=== PATIENT | female | born 1985 | race Caucasian/White ===

== ENCOUNTER → 2017-05-22 | Outpatient (CLI) | payer OTHER ==
[~2017-05-22] MED LIST: ACYC200 PO; ACYC400 PO; ALBU2.5V5 INH; ALBU90OI6 INH; ATEN25; BENZ100A PO; CLAR500CR PO; DULERA 200 MCG/13 GM INH; FLONASE ALLERG9.9 ML; FLUC200 PO; GUAI600T33 PO; HYDACE5 PO; LEVFLO500 PO; MULVITMINE PO; NYSTRITC TOP; ONDA4ODT PO; PRED20 PO; PROCODE120 PO; PSEU120ER PO; RANI150 PO; ROXICODONE5 MG PO; STOOL SOFTNER PO
[2017-05-26 11:12] LABS: HPV Genotype 16 Not Detected (NOTDET); HPV Genotype 18 Not Detected (NOTDET)
[2017-06-02 11:15] LABS: HPV High Risk Other Not Detected (NOTDET)
== END ==
LOC: LAB 16:14
PROVIDERS: Nurse Practitioner Family
DX: Z12.4 Encounter for screening for malignant neoplasm of cervix (principal)
CPT/HCPCS: 87624; G0145

== ENCOUNTER → 2017-09-17 | Outpatient (CLI) | payer OTHER ==
[~2017-09-17] MED LIST changes: -ALBU2.5V5 INH; -DULERA 200 MCG/13 GM INH; -ROXICODONE5 MG PO; +Ventolin/Prove6.7 GM
== END ==
LOC: LAB 16:21 → LAB SHORT 16:21
DX: R05 Cough (principal)
CPT/HCPCS: 87070; 87205

== ENCOUNTER 2017-09-22 17:32 | Inpatient (IN) | payer OTHER ==
[~2017-09-22] VITALS: Ht 160 cm; Wt 99.0 kg
[~2017-09-22 17:32] MED LIST changes: -ACYC400 PO; -ALBU90OI6 INH; -BENZ100A PO; -CLAR500CR PO; -FLONASE ALLERG9.9 ML; -FLUC200 PO; -GUAI600T33 PO; -NYSTRITC TOP; -ONDA4ODT PO; -PRED20 PO; -Ventolin/Prove6.7 GM
[2017-09-22] MEDS ORDERED: ALBU2.5V5 INH (18:12)
[2017-09-22] MEDS ORDERED: FLUC200 PO (18:13)
[2017-09-22] MEDS ORDERED: CLAR500CR PO (18:13)
[2017-09-22] MEDS ORDERED: ALBU90OI6 INH (18:13)
[2017-09-22] MEDS ORDERED: ONDA4ODT PO (18:13)
[2017-09-22] MEDS ORDERED: GUAI600T33 PO (18:13)
[2017-09-22] MEDS ORDERED: PRED20 PO (18:14)
[2017-09-22 19:13] LABS: Alanine Aminotransfer (ALT/SGP 173 U/L (12-78); Albumin, Blood 3.9 g/dL (3.4-5.0); Albumin/Globulin Ratio 0.9 (0.8-1.8); Alk Phos 120 U/L (50-136); Anion Gap 10 mmol/L (6-16); Aspartate Aminotrans (AST/SGOT 86 U/L (12-37); Bilirubin, Total 0.7 mg/dL (0.1-1.0); Blood Urea Nitrogen 10 mg/dL (8-24); Bun/Creatinine Ratio 13.4 (12.0-20.0); CO2, Blood 23 mmol/L (21-32); Calcium, Blood 9.6 mg/dL (8.5-10.1); Chloride, Blood 107 mmol/L (98-108); Creatinine, Blood 0.75 mg/dL (0.40-1.00); Globulin, Blood 4.5 g/dL (2.2-4.0); Glomerular Filtration Rate >60 (60-); Glucose, Blood 127 mg/dL (70-99); Potassium, Blood 3.9 mmol/L (3.5-5.5); Sodium, Blood 140 mmol/L (136-145); Total Protein, Blood 8.4 g/dL (6.4-8.2); Troponin I <0.015 ng/mL (0.000-0.040)
[2017-09-22 19:29] LABS: BASOPHILS ABSOLUTE AUTO 0.01 K/mm3 (0.00-0.23); BASOPHILS PERCENT AUTO 0 % (0-2); EOSINOPHILS PERCENT AUTO 0 % (0-6); Hematocrit 44.3 % (33.0-51.0); Hemoglobin 14.7 g/dL (11.5-16.0); IMMATURE GRAN PERCENT AUTO 1 % (0-1); LYMPHOCYTES ABSOLUTE AUTO 1.26 K/mm3 (0.84-5.20); LYMPHOCYTES PERCENT AUTO 8 % (21-46); MONOCYTES PERCENT AUTO 1 % (4-13); Mean Corpuscular HGB 27.6 pg (26.0-34.0); Mean Corpuscular HGB Conc 33.2 g/dL (31.5-36.5); Mean Corpuscular Volume 83 fL (80-100); Mean Platelet Volume 10.4 fL (9.1-12.4); NEUTROPHILS ABSOLUTE AUTO 14.97 K/mm3 (1.96-9.15); NEUTROPHILS PERCENT AUTO 90 % (41-73); Platelet Count 324 K/mm3 (150-400); RDW Coefficient Variation 14.4 % (11.7-14.2); RDW Standard Deviation 41.1 fL (35.1-46.3); Red Blood Cell Count 5.33 M/mm3 (3.80-5.20); White Blood Cell Count 16.64 K/mm3 (4.00-11.30)
[2017-09-22] MEDS ORDERED: RANI150 PO (22:18)
[2017-09-22] MEDS ORDERED: FLONASE ALLERG9.9 ML ×2 (22:18→22:19)
[2017-09-22 22:27] LABS: PCO2 Arterial 21.4 mmHg (35-45); PO2 Arterial 41.3 mmHg (80-100); pH Blood Arterial 7.54 (7.35-7.45)
[2017-09-22 22:46] LABS: Influenza A Negative (NEGATIVE); Influenza B Negative (NEGATIVE)
[2017-09-23] MEDS ORDERED: BENZ100A PO (00:44)
[2017-09-23] MEDS ORDERED: ACYC400 PO (00:47)
[2017-09-23] MEDS ORDERED: NYSTRITC TOP (00:48)
[2017-09-23 04:12] LABS: Hematocrit 35.7 % (33.0-51.0); Hemoglobin 11.8 g/dL (11.5-16.0); Mean Corpuscular HGB 27.7 pg (26.0-34.0); Mean Corpuscular HGB Conc 33.1 g/dL (31.5-36.5); Mean Corpuscular Volume 84 fL (80-100); Mean Platelet Volume 10.2 fL (9.1-12.4); Platelet Count 241 K/mm3 (150-400); RDW Coefficient Variation 14.4 % (11.7-14.2); RDW Standard Deviation 41.2 fL (35.1-46.3); Red Blood Cell Count 4.26 M/mm3 (3.80-5.20); White Blood Cell Count 12.03 K/mm3 (4.00-11.30)
[2017-09-23 04:44] LABS: Alanine Aminotransfer (ALT/SGP 120 U/L (12-78); Albumin, Blood 3.1 g/dL (3.4-5.0); Albumin/Globulin Ratio 0.9 (0.8-1.8); Alk Phos 83 U/L (50-136); Anion Gap 9 mmol/L (6-16); Aspartate Aminotrans (AST/SGOT 43 U/L (12-37); Bilirubin, Total 0.7 mg/dL (0.1-1.0); Blood Urea Nitrogen 9 mg/dL (8-24); Bun/Creatinine Ratio 12.1 (12.0-20.0); CO2, Blood 20 mmol/L (21-32); Calcium, Blood 7.6 mg/dL (8.5-10.1); Chloride, Blood 113 mmol/L (98-108); Creatinine, Blood 0.75 mg/dL (0.40-1.00); Globulin, Blood 3.5 g/dL (2.2-4.0); Glomerular Filtration Rate >60 (60-); Glucose, Blood 154 mg/dL (70-99); Potassium, Blood 3.8 mmol/L (3.5-5.5); Sodium, Blood 142 mmol/L (136-145); Total Protein, Blood 6.6 g/dL (6.4-8.2)
[2017-09-23 04:47] LABS: PCO2 Arterial 30.9 mmHg (35-45); PO2 Arterial 86.8 mmHg (80-100); pH Blood Arterial 7.44 (7.35-7.45)
[2017-09-23 15:40] LABS: Vancomycin, Trough 12.2 ug/mL (5.0-10.0)
[2017-09-23 16:07] LABS: Adenovirus Not Detected (NOT DETECT); Bordetella pertussis Not Detected (NOT DETECT); Chlamydophila pneumoniae Not Detected (NOT DETECT); Coronavirus 229E Not Detected (NOT DETECT); Coronavirus HKU1 Not Detected (NOT DETECT); Coronavirus NL63 Not Detected (NOT DETECT); Coronavirus OC43 Not Detected (NOT DETECT); Human Metapneumovirus Not Detected (NOT DETECT); Human Rhinovirus/Enterovirus Not Detected (NOT DETECT); Influenza A/2009-H1 Not Detected (NOT DETECT); Influenza A/H1 Not Detected (NOT DETECT); Influenza A/H3 Not Detected (NOT DETECT); Influenza B Not Detected (NOT DETECT); Mycoplasma pneumoniae Not Detected (NOT DETECT); Parainfluenza Virus 1 Not Detected (NOT DETECT); Parainfluenza Virus 2 Not Detected (NOT DETECT); Parainfluenza Virus 3 Not Detected (NOT DETECT); Parainfluenza Virus 4 Not Detected (NOT DETECT); Respiratory Syncytial Virus Not Detected (NOT DETECT)
[2017-09-23 17:28] LABS: Influenza A Not Detected (NOT DETECT)
[2017-09-24 04:03] LABS: BASOPHILS ABSOLUTE AUTO 0.01 K/mm3 (0.00-0.23); BASOPHILS PERCENT AUTO 0 % (0-2); EOSINOPHILS PERCENT AUTO 0 % (0-6); Hematocrit 35.5 % (33.0-51.0); Hemoglobin 11.6 g/dL (11.5-16.0); IMMATURE GRAN ABSOLUTE AUTO 0.09 K/mm3 (0.00-0.10); IMMATURE GRAN PERCENT AUTO 1 % (0-1); LYMPHOCYTES ABSOLUTE AUTO 0.71 K/mm3 (0.84-5.20); LYMPHOCYTES PERCENT AUTO 6 % (21-46); MONOCYTES ABSOLUTE AUTO 0.27 K/mm3 (0.16-1.47); MONOCYTES PERCENT AUTO 2 % (4-13); Mean Corpuscular HGB 28.9 pg (26.0-34.0); Mean Corpuscular HGB Conc 32.7 g/dL (31.5-36.5); Mean Platelet Volume 10.4 fL (9.1-12.4); NEUTROPHILS ABSOLUTE AUTO 10.65 K/mm3 (1.96-9.15); NEUTROPHILS PERCENT AUTO 91 % (41-73); Platelet Count 197 K/mm3 (150-400); RDW Coefficient Variation 14.6 % (11.7-14.2); Red Blood Cell Count 4.02 M/mm3 (3.80-5.20); White Blood Cell Count 11.73 K/mm3 (4.00-11.30)
[2017-09-24 04:04] LABS: Mean Corpuscular Volume 88 fL (80-100)
[2017-09-24 04:20] LABS: Alanine Aminotransfer (ALT/SGP 121 U/L (12-78); Albumin, Blood 2.9 g/dL (3.4-5.0); Albumin/Globulin Ratio 0.8 (0.8-1.8); Alk Phos 75 U/L (50-136); Anion Gap 6 mmol/L (6-16); Aspartate Aminotrans (AST/SGOT 44 U/L (12-37); Bilirubin, Total 0.5 mg/dL (0.1-1.0); Blood Urea Nitrogen 9 mg/dL (8-24); Bun/Creatinine Ratio 15.3 (12.0-20.0); CO2, Blood 23 mmol/L (21-32); Chloride, Blood 112 mmol/L (98-108); Creatinine, Blood 0.59 mg/dL (0.40-1.00); Globulin, Blood 3.5 g/dL (2.2-4.0); Glomerular Filtration Rate >60 (60-); Glucose, Blood 137 mg/dL (70-99); Potassium, Blood 4.3 mmol/L (3.5-5.5); Sodium, Blood 141 mmol/L (136-145); Total Protein, Blood 6.4 g/dL (6.4-8.2)
[2017-09-24 05:30] LABS: PCO2 Arterial 34.1 mmHg (35-45); PO2 Arterial 78.2 mmHg (80-100); pH Blood Arterial 7.45 (7.35-7.45)
[2017-09-25 07:15] LABS: BASOPHILS ABSOLUTE AUTO 0.01 K/mm3 (0.00-0.23); BASOPHILS PERCENT AUTO 0 % (0-2); EOSINOPHILS PERCENT AUTO 0 % (0-6); Hematocrit 37.1 % (33.0-51.0); IMMATURE GRAN ABSOLUTE AUTO 0.12 K/mm3 (0.00-0.10); IMMATURE GRAN PERCENT AUTO 1 % (0-1); LYMPHOCYTES ABSOLUTE AUTO 0.48 K/mm3 (0.84-5.20); LYMPHOCYTES PERCENT AUTO 4 % (21-46); MONOCYTES ABSOLUTE AUTO 0.26 K/mm3 (0.16-1.47); MONOCYTES PERCENT AUTO 2 % (4-13); Mean Corpuscular HGB 28.1 pg (26.0-34.0); Mean Corpuscular HGB Conc 32.3 g/dL (31.5-36.5); Mean Corpuscular Volume 87 fL (80-100); Mean Platelet Volume 10.4 fL (9.1-12.4); NEUTROPHILS PERCENT AUTO 92 % (41-73); Platelet Count 191 K/mm3 (150-400); RDW Coefficient Variation 14.8 % (11.7-14.2); Red Blood Cell Count 4.27 M/mm3 (3.80-5.20); White Blood Cell Count 10.97 K/mm3 (4.00-11.30)
[2017-09-25 07:31] LABS: Vancomycin, Trough 14.5 ug/mL (5.0-10.0)
[2017-09-25 07:32] LABS: Albumin, Blood 2.9 g/dL (3.4-5.0); Anion Gap 5 mmol/L (6-16); Blood Urea Nitrogen 16 mg/dL (8-24); CO2, Blood 26 mmol/L (21-32); Chloride, Blood 110 mmol/L (98-108); Creatinine, Blood 0.59 mg/dL (0.40-1.00); Glomerular Filtration Rate >60 (60-); Glucose, Blood 147 mg/dL (70-99); Phosphorus, Blood 2.7 mg/dL (2.5-4.9); Potassium, Blood 4.4 mmol/L (3.5-5.5); Sodium, Blood 141 mmol/L (136-145)
[2017-09-27 04:00] LABS: BASOPHILS PERCENT AUTO 0 % (0-2); EOSINOPHILS PERCENT AUTO 0 % (0-6); Hematocrit 36.8 % (33.0-51.0); Hemoglobin 11.9 g/dL (11.5-16.0); IMMATURE GRAN ABSOLUTE AUTO 0.06 K/mm3 (0.00-0.10); IMMATURE GRAN PERCENT AUTO 1 % (0-1); LYMPHOCYTES PERCENT AUTO 4 % (21-46); MONOCYTES ABSOLUTE AUTO 0.26 K/mm3 (0.16-1.47); MONOCYTES PERCENT AUTO 3 % (4-13); Mean Corpuscular HGB 27.7 pg (26.0-34.0); Mean Corpuscular HGB Conc 32.3 g/dL (31.5-36.5); Mean Corpuscular Volume 86 fL (80-100); Mean Platelet Volume 10.8 fL (9.1-12.4); NEUTROPHILS ABSOLUTE AUTO 7.05 K/mm3 (1.96-9.15); NEUTROPHILS PERCENT AUTO 92 % (41-73); Platelet Count 166 K/mm3 (150-400); RDW Coefficient Variation 14.7 % (11.7-14.2); RDW Standard Deviation 44.4 fL (35.1-46.3); White Blood Cell Count 7.67 K/mm3 (4.00-11.30)
[2017-09-27 04:15] LABS: Albumin, Blood 2.6 g/dL (3.4-5.0); Anion Gap 6 mmol/L (6-16); Blood Urea Nitrogen 20 mg/dL (8-24); Bun/Creatinine Ratio 33.5 (12.0-20.0); CO2, Blood 26 mmol/L (21-32); Calcium, Blood 7.8 mg/dL (8.5-10.1); Chloride, Blood 110 mmol/L (98-108); Glomerular Filtration Rate >60 (60-); Glucose, Blood 160 mg/dL (70-99); Phosphorus, Blood 3.1 mg/dL (2.5-4.9); Potassium, Blood 4.4 mmol/L (3.5-5.5); Sodium, Blood 142 mmol/L (136-145)
[2017-09-28 08:12] LABS: Vancomycin, Trough 13.5 ug/mL (5.0-10.0)
[2017-10-01] MEDS ORDERED: ROXICODONE5 MG PO (17:44)
[2017-10-01] MEDS ORDERED: DULERA 200 MCG/13 GM INH (17:45)
== END 2017-10-01 19:50 | disposition home or self-care (01) | DRG 871 ==
LOC: ER 17:32 → PCU 20:13 → ICUE 20:13 → PCU 09-24 17:40 → MEDS 09-30 22:30
PROVIDERS: Emergency Medicine; Family Medicine; Internal Medicine; Internal Medicine Critical Care Medicine
PROC: 5A09357 Assistance with Respiratory Ventilation, Less than 24 Consecutive Hours, Continuous Positive Airway Pressure (ICD-10-PCS; principal; 2017-09-22)
DX: A41.9 Sepsis, unspecified organism (principal); J18.0 Bronchopneumonia, unspecified organism; J96.01 Acute respiratory failure with hypoxia; J45.901 Unspecified asthma with (acute) exacerbation; R65.20 Severe sepsis without septic shock; M32.9 Systemic lupus erythematosus, unspecified; K21.9 Gastro-esophageal reflux disease without esophagitis; K59.00 Constipation, unspecified; E66.9 Obesity, unspecified; Z68.34 Body mass index [BMI] 34.0-34.9, adult
CPT/HCPCS: 36415; 36600; 71045; 71046; 71260; 80053; 80069; 80202; 82803; 83605; 84145; 84484; 85025; 85027; 85379; 87040; 87070; 87205; 87486; 87581; 87633; 87798; 87804; 93005; 93010; 94640; 94660; 94667; 94668; 94760; 94761; 94762; 96365; 96366; 96375; 99285; C1751; J1650; J1885; J1956; J2543; J2930; J3010; J3370; J3475; J7030; J7050; J7120; Q9967

== ENCOUNTER → 2018-06-11 | Outpatient (CLI) | payer OTHER ==
[~2018-06-11] MED LIST changes: +ACYC400 PO; +ALBU2.5V5 INH; +ALBU90OI6 INH; +BENZ100A PO; +CLAR500CR PO; +DULERA 200 MCG/13 GM INH; +FLONASE ALLERG9.9 ML; +FLUC200 PO; +GUAI600T33 PO; +NYSTRITC TOP; +ONDA4ODT PO; +PRED20 PO; +ROXICODONE5 MG PO
== END | disposition home or self-care (01) ==
LOC: LAB SHORT 10:03 → LAB 10:03
DX: R05 Cough (principal)
CPT/HCPCS: 87070; 87205

== ENCOUNTER 2018-12-28 22:06 | Emergency (ER) | payer OTHER, SELFPAY ==
[~2018-12-28] VITALS: Ht 160 cm; Wt 95.2 kg
[2018-12-29 00:03] LABS: Source, Urine Clean Catch
[2018-12-29 00:13] LABS: Blood, Urine 5+ (Neg); Glucose Qualitative, Urine Neg (Neg); Ketones, Urine Neg (Neg); Leukocyte Esterase, Urine 3+ (Neg); Nitrite, Urine Pos (Neg); Protein, Urine 3+ (Neg); Specific Gravity, Urine 1.025 (1.003-1.022); Urobilinogen, Urine 4+ (Normal)
[2018-12-29 00:23] LABS: Appearance, Urine Cloudy (Clear); Bilirubin, Urine 3+ (Neg); Color, Urine Orange (P-Yellow)
[2018-12-29 00:24] LABS: Bacteria Mod /hpf; Red Blood Cells, Urine TNTC /hpf (0-2); Squamous Epithelial Cells Rare /hpf (Few); White Blood Cells, Urine TNTC /hpf (0-5)
[2018-12-29] MEDS ORDERED: Bactrim Ds Tab1 EACH PO (00:48)
[2018-12-29] MEDS ORDERED: Pyridium100 MG PO (00:48)
== END 2018-12-29 00:59 | disposition home or self-care (01) ==
LOC: ER 22:06
PROVIDERS: Emergency Medicine
DX: N30.91 Cystitis, unspecified with hematuria (principal); Z88.8 Allergy status to other drugs, medicaments and biological substances; Z88.1 Allergy status to other antibiotic agents; Z79.899 Other long term (current) drug therapy; Z79.52 Long term (current) use of systemic steroids; Z87.891 Personal history of nicotine dependence
CPT/HCPCS: 81001; 87086; 96372; 99283; J1885

== ENCOUNTER 2020-02-01 11:10 | Emergency (ER) | payer OTHER ==
[~2020-02-01] VITALS: Ht 157.5 cm; Wt 92.5 kg
[~2020-02-01 11:10] MED LIST changes: +Bactrim Ds Tab1 EACH PO; +Pyridium100 MG PO
[2020-02-01 13:12] LABS: BASOPHILS ABSOLUTE AUTO 0.02 K/mm3 (0.00-0.23); BASOPHILS PERCENT AUTO 0 % (0-2); EOSINOPHILS PERCENT AUTO 0 % (0-6); Hematocrit 42.8 % (33.0-51.0); Hemoglobin 13.8 g/dL (11.5-16.0); IMMATURE GRAN ABSOLUTE AUTO 0.17 K/mm3 (0.00-0.10); IMMATURE GRAN PERCENT AUTO 1 % (0-1); LYMPHOCYTES PERCENT AUTO 8 % (21-46); MONOCYTES ABSOLUTE AUTO 0.86 K/mm3 (0.16-1.47); MONOCYTES PERCENT AUTO 5 % (4-13); Mean Corpuscular HGB 27.9 pg (26.0-34.0); Mean Corpuscular HGB Conc 32.2 g/dL (31.5-36.5); Mean Corpuscular Volume 87 fL (80-100); Mean Platelet Volume 10.1 fL (9.1-12.4); NEUTROPHILS ABSOLUTE AUTO 16.62 K/mm3 (1.96-9.15); NEUTROPHILS PERCENT AUTO 87 % (41-73); Platelet Count 232 K/mm3 (150-400); RDW Standard Deviation 44.2 fL (35.1-46.3); Red Blood Cell Count 4.95 M/mm3 (3.80-5.20); White Blood Cell Count 19.17 K/mm3 (4.00-11.30)
[2020-02-01 13:14] LABS: Alanine Aminotransfer (ALT/SGP 18 U/L (12-78); Albumin, Blood 3.8 g/dL (3.4-5.0); Alk Phos 79 U/L (50-136); Anion Gap 9 mmol/L (6-16); Aspartate Aminotrans (AST/SGOT 13 U/L (12-37); Bilirubin, Total 0.4 mg/dL (0.1-1.0); Blood Urea Nitrogen 14 mg/dL (8-24); Bun/Creatinine Ratio 20.3 (12.0-20.0); CO2, Blood 22 mmol/L (21-32); Chloride, Blood 111 mmol/L (98-108); Creatinine, Blood 0.69 mg/dL (0.40-1.00); Globulin, Blood 3.7 g/dL (2.2-4.0); Glomerular Filtration Rate >60 (60-); Glucose, Blood 101 mg/dL (70-99); Potassium, Blood 3.6 mmol/L (3.5-5.5); Sodium, Blood 142 mmol/L (136-145); Total Protein, Blood 7.5 g/dL (6.4-8.2); Troponin I <0.015 ng/mL (0.000-0.040)
[2020-02-01] MEDS ORDERED: Levaquin750 MG PO (15:52)
== END 2020-02-01 16:10 | disposition home or self-care (01) ==
LOC: ER 11:10
PROVIDERS: Emergency Medicine
DX: J18.9 Pneumonia, unspecified organism (principal); J45.909 Unspecified asthma, uncomplicated; K21.9 Gastro-esophageal reflux disease without esophagitis; Z88.8 Allergy status to other drugs, medicaments and biological substances; Z88.1 Allergy status to other antibiotic agents; Z79.899 Other long term (current) drug therapy; Z79.02 Long term (current) use of antithrombotics/antiplatelets; Z87.891 Personal history of nicotine dependence; Z79.52 Long term (current) use of systemic steroids; Z20.828 Contact with and (suspected) exposure to other viral communicable diseases
CPT/HCPCS: 71045; 80053; 84484; 85025; 85379; 93005; 93010; 99285-25; U0002; U0003

== ENCOUNTER → 2020-08-16 | Outpatient (CLI) | payer OTHER ==
[~2020-08-16] MED LIST changes: +Levaquin750 MG PO
[2020-08-17 09:30] LABS: Candida species (DNA Probe) Negative (NEGATIVE); G. vaginalis (DNA Probe) Negative (NEGATIVE); T. vaginalis (DNA Probe) Negative (NEGATIVE)
== END | disposition home or self-care (01) ==
LOC: LAB SHORT 12:15 → LAB 12:15
PROVIDERS: Nurse Practitioner Family
DX: N89.8 Other specified noninflammatory disorders of vagina (principal); R10.30 Lower abdominal pain, unspecified
CPT/HCPCS: 87480; 87510; 87660

== ENCOUNTER → 2020-11-19 | Outpatient (CLI) | payer OTHER | LOC: LAB SHORT 19:57 → LAB 19:57 | DX: R31.9 Hematuria, unspecified (principal) | CPT/HCPCS: 87077; 87086; 87186 ==

== ENCOUNTER → 2020-12-16 | Outpatient (CLI) | payer OTHER | END | disposition home or self-care (01) | LOC: LAB 17:00 → LAB SHORT 17:00 | DX: N30.01 Acute cystitis with hematuria (principal) | CPT/HCPCS: 87086 ==

== ENCOUNTER → 2021-04-15 | Outpatient (CLI) | payer OTHER | LOC: LAB 17:24 → LAB SHORT 17:24 | DX: R31.9 Hematuria, unspecified (principal); N30.01 Acute cystitis with hematuria | CPT/HCPCS: 87077; 87086; 87186 ==

== ENCOUNTER 2021-05-20 11:22 | Emergency (ER) | payer OTHER ==
[~2021-05-20] VITALS: Ht 157.5 cm; Wt 87.1 kg
[2021-05-20 11:36] LABS: Source, Urine Clean Catch
[2021-05-20 11:42] LABS: Appearance, Urine Hazy (Clear); Bilirubin, Urine Neg (Neg); Blood, Urine 5+ (Neg); Color, Urine Yellow (P-Yellow); Glucose Qualitative, Urine Neg (Neg); Ketones, Urine 2+ (Neg); Leukocyte Esterase, Urine 2+ (Neg); Nitrite, Urine Pos (Neg); Protein, Urine 2+ (Neg); Urobilinogen, Urine NORM (Normal)
[2021-05-20 11:54] LABS: Amorphous Light (0-Heavy); Bacteria Many /hpf; Mucus Heavy (0-Heavy); Red Blood Cells, Urine 50-100 /hpf (0-2); Squamous Epithelial Cells Few /hpf (Few)
[2021-05-20 11:55] LABS: Amorphous Casts 0-2 /lpf (0)
[2021-05-20 12:06] LABS: BASOPHILS ABSOLUTE AUTO 0.03 K/mm3 (0.00-0.23); BASOPHILS PERCENT AUTO 0 % (0-2); EOSINOPHILS PERCENT AUTO 0 % (0-6); Hematocrit 41.7 % (33.0-51.0); Hemoglobin 14.1 g/dL (11.5-16.0); IMMATURE GRAN ABSOLUTE AUTO 0.05 K/mm3 (0.00-0.10); IMMATURE GRAN PERCENT AUTO 0 % (0-1); LYMPHOCYTES ABSOLUTE AUTO 1.37 K/mm3 (0.84-5.20); LYMPHOCYTES PERCENT AUTO 9 % (21-46); MONOCYTES ABSOLUTE AUTO 0.68 K/mm3 (0.16-1.47); MONOCYTES PERCENT AUTO 5 % (4-13); Mean Corpuscular HGB Conc 33.8 g/dL (31.5-36.5); Mean Corpuscular Volume 83 fL (80-100); Mean Platelet Volume 10.3 fL (9.1-12.4); NEUTROPHILS PERCENT AUTO 86 % (41-73); Platelet Count 183 K/mm3 (150-400); RDW Coefficient Variation 14.2 % (11.7-14.2); RDW Standard Deviation 42.5 fL (35.1-46.3); Red Blood Cell Count 5.04 M/mm3 (3.80-5.20); White Blood Cell Count 14.73 K/mm3 (4.00-11.30)
[2021-05-20 12:15] LABS: Alanine Aminotransfer (ALT/SGP 20 U/L (12-78); Albumin, Blood 3.9 g/dL (3.4-5.0); Alk Phos 71 U/L (50-136); Anion Gap 7 mmol/L (6-16); Aspartate Aminotrans (AST/SGOT 12 U/L (12-37); Bilirubin, Total 1.1 mg/dL (0.1-1.0); Blood Urea Nitrogen 9 mg/dL (8-24); Bun/Creatinine Ratio 12.4 (12.0-20.0); CO2, Blood 25 mmol/L (21-32); Chloride, Blood 106 mmol/L (98-108); Creatinine, Blood 0.73 mg/dL (0.40-1.00); Globulin, Blood 3.8 g/dL (2.2-4.0); Glomerular Filtration Rate >60 (60-); Glucose, Blood 106 mg/dL (70-99); Potassium, Blood 3.7 mmol/L (3.5-5.5); Sodium, Blood 138 mmol/L (136-145); Total Protein, Blood 7.7 g/dL (6.4-8.2)
[2021-05-20] MEDS ORDERED: Pyridium200 MG PO (13:08)
[2021-05-20] MEDS ORDERED: Naprosyn500 MG PO (13:08)
[2021-05-20] MEDS ORDERED: LEVO750 PO (13:08)
== END 2021-05-20 13:34 | disposition home or self-care (01) ==
LOC: ER 11:22
PROVIDERS: Physician Assistant
DX: N12 Tubulo-interstitial nephritis, not specified as acute or chronic (principal); N83.209 Unspecified ovarian cyst, unspecified side; Z88.8 Allergy status to other drugs, medicaments and biological substances; Z88.1 Allergy status to other antibiotic agents; Z79.899 Other long term (current) drug therapy; Z87.440 Personal history of urinary (tract) infections; Z87.891 Personal history of nicotine dependence
CPT/HCPCS: 74176; 80053; 81001; 81025; 85025; 87077; 87086; 87186; 96372; 99285-25; J1885

== ENCOUNTER 2021-06-29 07:08 | Emergency (ER) | payer OTHER ==
[~2021-06-29] VITALS: Ht 157.5 cm; Wt 83.0 kg
[~2021-06-29 07:08] MED LIST changes: +LEVO750 PO; +Naprosyn500 MG PO; +Pyridium200 MG PO
[2021-06-29 08:44] LABS: Influenza A, PCR NEGATIVE (NEGATIVE); Influenza B, PCR NEGATIVE (NEGATIVE); Resp Syncytial Virus, PCR NEGATIVE (NEGATIVE); SARS-Cov-2 (COVID-19) PCR, MMC NEGATIVE (NEGATIVE)
[2021-06-29] MEDS ORDERED: Q-Tussin100 MG/5 M PO (09:51)
== END 2021-06-29 10:06 | disposition home or self-care (01) ==
LOC: ER 07:08
PROVIDERS: Student in an Organized Health Care Education/Training Program
DX: J45.909 Unspecified asthma, uncomplicated (principal); Z20.822 Contact with and (suspected) exposure to COVID-19; Z88.8 Allergy status to other drugs, medicaments and biological substances; Z88.1 Allergy status to other antibiotic agents; Z79.899 Other long term (current) drug therapy; Z87.891 Personal history of nicotine dependence
CPT/HCPCS: 0241U; 71046; 99284-25; A9270

== ENCOUNTER 2021-07-05 14:08 | Emergency (ER) | payer OTHER ==
[~2021-07-05] VITALS: Ht 157.5 cm; Wt 83.0 kg
[~2021-07-05 14:08] MED LIST changes: +Q-Tussin100 MG/5 M PO
[2021-07-05 14:59] LABS: BASOPHILS ABSOLUTE AUTO 0.01 K/mm3 (0.00-0.23); BASOPHILS PERCENT AUTO 0 % (0-2); EOSINOPHILS ABSOLUTE AUTO 0.03 K/mm3 (0.00-0.68); EOSINOPHILS PERCENT AUTO 0 % (0-6); Hematocrit 43.4 % (33.0-51.0); Hemoglobin 14.9 g/dL (11.5-16.0); IMMATURE GRAN ABSOLUTE AUTO 0.07 K/mm3 (0.00-0.10); IMMATURE GRAN PERCENT AUTO 1 % (0-1); LYMPHOCYTES ABSOLUTE AUTO 3.38 K/mm3 (0.84-5.20); LYMPHOCYTES PERCENT AUTO 33 % (21-46); MONOCYTES ABSOLUTE AUTO 0.41 K/mm3 (0.16-1.47); MONOCYTES PERCENT AUTO 4 % (4-13); Mean Corpuscular HGB 28.2 pg (26.0-34.0); Mean Corpuscular HGB Conc 34.3 g/dL (31.5-36.5); Mean Corpuscular Volume 82 fL (80-100); Mean Platelet Volume 10.4 fL (9.1-12.4); NEUTROPHILS ABSOLUTE AUTO 6.35 K/mm3 (1.96-9.15); NEUTROPHILS PERCENT AUTO 62 % (41-73); Platelet Count 168 K/mm3 (150-400); RDW Coefficient Variation 13.2 % (11.7-14.2); Red Blood Cell Count 5.29 M/mm3 (3.80-5.20); White Blood Cell Count 10.25 K/mm3 (4.00-11.30)
[2021-07-05 15:11] LABS: Alanine Aminotransfer (ALT/SGP 21 U/L (12-78); Albumin, Blood 3.8 g/dL (3.4-5.0); Albumin/Globulin Ratio 1.2 (0.8-1.8); Alk Phos 80 U/L (50-136); Anion Gap 9 mmol/L (6-16); Aspartate Aminotrans (AST/SGOT 16 U/L (12-37); Bilirubin, Total 0.9 mg/dL (0.1-1.0); Blood Urea Nitrogen 6 mg/dL (8-24); Bun/Creatinine Ratio 7.5 (12.0-20.0); CO2, Blood 24 mmol/L (21-32); Calcium, Blood 8.7 mg/dL (8.5-10.1); Chloride, Blood 106 mmol/L (98-108); Globulin, Blood 3.3 g/dL (2.2-4.0); Glomerular Filtration Rate >60 (60-); Glucose, Blood 164 mg/dL (70-99); Magnesium, Blood 1.8 mg/dL (1.6-2.4); Sodium, Blood 139 mmol/L (136-145); Total Protein, Blood 7.1 g/dL (6.4-8.2)
[2021-07-05] MEDS ORDERED: Prednisone20 MG PO (17:33)
[2021-07-05] MEDS ORDERED: Guaifenesin Wit10 ML PO (17:35)
== END 2021-07-05 17:54 | disposition home or self-care (01) ==
LOC: ER 14:08
PROVIDERS: Physician Assistant
DX: J98.01 Acute bronchospasm (principal); Z88.1 Allergy status to other antibiotic agents; Z88.8 Allergy status to other drugs, medicaments and biological substances; Z79.899 Other long term (current) drug therapy; Z87.891 Personal history of nicotine dependence
CPT/HCPCS: 36415; 71046; 80053; 83735; 85025; 96374; 96375; 99285-25; J1885; J2930

== ENCOUNTER 2021-09-19 06:11 | Inpatient (IN) | payer OTHER ==
[~2021-09-19] VITALS: Ht 157.5 cm; Wt 87.6 kg
[~2021-09-19 06:11] MED LIST changes: -ALBU2.5V5 INH; +ALBU2.5V5 NEB; +ALBU90OI INH; +AZELASTINE137 MCG/01; +Guaifenesin Wit10 ML PO; +Humibid-LA 600600 MG PO; +METHOTREXATE2.5 M1 PO; +NASACORT10.8 ML; +NITR100CA PO; +OXYB5 PO; +Prednisone20 MG PO; +Prozac40 MG PO; +SOLI5 PO
[2021-09-19] MEDS ORDERED: FLUT1DIS8 INH (06:43)
--- NOTE | 2021-09-19 08:33 | NUR ---
09/19/21 0833 Brennan Oliver HUTCHINS CATHETER PLACED PER [facility] NO ANTIBIOTICS ORDERED
--- NOTE | 2021-09-19 11:41 | NUR ---
PT ARRIVED TO UNIT FROM PACU TRANSFERRED PT FROM [facility] TO BED USING SLIDER SHEET. PT REPORTS 7/10 PAIN, PLACED KPAD TO ABD FOR COMFORT. REQUESTED FENTANYL ASSISTANT PRESS OPERATOR OFFSET FROM PHARMACY. PT DENIES N/V, SCOPALAMINE PATCH BEHIND R EAR. DENIES SOB, LCA, 02 SATS 100% ON RA. LAP INCISION w/STERI STRIP TO UMBILICUS, SLIGHT AMOUNT OOZING NOTED. TRANSVERSE DRESSING TO LOWER ABDOMEN HAS MOD AMT PINK SHADOWING NOTED.
[2021-09-19 11:59] LABS: BASOPHILS ABSOLUTE AUTO 0.02 K/mm3 (0.00-0.23); BASOPHILS PERCENT AUTO 0 % (0-2); EOSINOPHILS PERCENT AUTO 0 % (0-6); Hematocrit 36.6 % (33.0-51.0); Hemoglobin 12.7 g/dL (11.5-16.0); IMMATURE GRAN ABSOLUTE AUTO 0.05 K/mm3 (0.00-0.10); IMMATURE GRAN PERCENT AUTO 0 % (0-1); LYMPHOCYTES ABSOLUTE AUTO 1.07 K/mm3 (0.84-5.20); LYMPHOCYTES PERCENT AUTO 7 % (21-46); MONOCYTES ABSOLUTE AUTO 0.19 K/mm3 (0.16-1.47); MONOCYTES PERCENT AUTO 1 % (4-13); Mean Corpuscular HGB 28.4 pg (26.0-34.0); Mean Corpuscular HGB Conc 34.7 g/dL (31.5-36.5); Mean Corpuscular Volume 82 fL (80-100); Mean Platelet Volume 10.6 fL (9.1-12.4); NEUTROPHILS ABSOLUTE AUTO 13.45 K/mm3 (1.96-9.15); NEUTROPHILS PERCENT AUTO 91 % (41-73); Platelet Count 125 K/mm3 (150-400); RDW Coefficient Variation 12.9 % (11.7-14.2); RDW Standard Deviation 38.5 fL (35.1-46.3); Red Blood Cell Count 4.47 M/mm3 (3.80-5.20); White Blood Cell Count 14.78 K/mm3 (4.00-11.30)
--- NOTE | 2021-09-19 14:20 | NUR ---
PT HYPOTENSIVE. CALLED DR HOANG AND OBTAINED FLUID ORDERS. COMPLETED 1L BOLUS AND FLUIDS NOW RUNNING AT 200 ML/HR PER ORDERS. PT ABD SOFT BUT TENDER. KPAD IN PLACE FOR COMFORT. PT ALERT.
--- NOTE | 2021-09-19 14:42 | NUR ---
PT CONTINUES TO BE HYPOTENSIVE HR 59. DISCUSSED WITH DR HOANG. ORDERS OBTAINED FOR CBC. CONTINUE FLUIDS PER PREVIOUS ORDERS.
[2021-09-19 15:13] LABS: BASOPHILS ABSOLUTE AUTO 0.02 K/mm3 (0.00-0.23); BASOPHILS PERCENT AUTO 0 % (0-2); EOSINOPHILS PERCENT AUTO 0 % (0-6); Hematocrit 35.4 % (33.0-51.0); IMMATURE GRAN ABSOLUTE AUTO 0.05 K/mm3 (0.00-0.10); IMMATURE GRAN PERCENT AUTO 0 % (0-1); LYMPHOCYTES ABSOLUTE AUTO 0.58 K/mm3 (0.84-5.20); LYMPHOCYTES PERCENT AUTO 4 % (21-46); MONOCYTES ABSOLUTE AUTO 0.38 K/mm3 (0.16-1.47); MONOCYTES PERCENT AUTO 3 % (4-13); Mean Corpuscular HGB 28.5 pg (26.0-34.0); Mean Corpuscular HGB Conc 33.9 g/dL (31.5-36.5); Mean Corpuscular Volume 84 fL (80-100); Mean Platelet Volume 10.3 fL (9.1-12.4); NEUTROPHILS PERCENT AUTO 93 % (41-73); Platelet Count 154 K/mm3 (150-400); RDW Coefficient Variation 12.9 % (11.7-14.2); RDW Standard Deviation 39.4 fL (35.1-46.3); Red Blood Cell Count 4.21 M/mm3 (3.80-5.20); White Blood Cell Count 14.93 K/mm3 (4.00-11.30)
--- NOTE | 2021-09-19 23:14 | NUR ---
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 PT SCHEDULED TO RECEIVE MIDNOC DOSE OF TORADOL WHICH IS TO BE PTS THIRD DOSE.PT RECEIVED IV FLUID BOLUS EARLIER TODAY AND HAS BEEN RUNNING LR AT 200 ML/HR THIS ENTIRE SHIFT.DR IGNACIO ORDERED CMP IN AM,DCD TORADOL,AND DIRECTED ME TO CALL DR HOANG DIRECTLY ON CELL PHONE IN AM IF ANY FURTHER CONCERNS.
[2021-09-20 04:30] LABS: BASOPHILS ABSOLUTE AUTO 0.01 K/mm3 (0.00-0.23); BASOPHILS PERCENT AUTO 0 % (0-2); EOSINOPHILS PERCENT AUTO 0 % (0-6); Hematocrit 30.5 % (33.0-51.0); Hemoglobin 10.1 g/dL (11.5-16.0); IMMATURE GRAN ABSOLUTE AUTO 0.05 K/mm3 (0.00-0.10); IMMATURE GRAN PERCENT AUTO 0 % (0-1); LYMPHOCYTES PERCENT AUTO 9 % (21-46); MONOCYTES PERCENT AUTO 6 % (4-13); Mean Corpuscular HGB 28.4 pg (26.0-34.0); Mean Corpuscular HGB Conc 33.1 g/dL (31.5-36.5); Mean Corpuscular Volume 86 fL (80-100); Mean Platelet Volume 10.9 fL (9.1-12.4); NEUTROPHILS ABSOLUTE AUTO 10.12 K/mm3 (1.96-9.15); NEUTROPHILS PERCENT AUTO 85 % (41-73); Platelet Count 137 K/mm3 (150-400); RDW Coefficient Variation 12.8 % (11.7-14.2); RDW Standard Deviation 40.3 fL (35.1-46.3); Red Blood Cell Count 3.56 M/mm3 (3.80-5.20); White Blood Cell Count 11.98 K/mm3 (4.00-11.30)
[2021-09-20 05:05] LABS: Alanine Aminotransfer (ALT/SGP 34 U/L (12-78); Albumin, Blood 2.6 g/dL (3.4-5.0); Alk Phos 46 U/L (50-136); Anion Gap 3 mmol/L (6-16); Aspartate Aminotrans (AST/SGOT 18 U/L (12-37); Bilirubin, Total 0.6 mg/dL (0.1-1.0); Blood Urea Nitrogen 9 mg/dL (8-24); Bun/Creatinine Ratio 11.8 (12.0-20.0); CO2, Blood 29 mmol/L (21-32); Calcium, Blood 7.9 mg/dL (8.5-10.1); Chloride, Blood 108 mmol/L (98-108); Creatinine, Blood 0.77 mg/dL (0.40-1.00); Globulin, Blood 2.6 g/dL (2.2-4.0); Glomerular Filtration Rate >60 (60-); Glucose, Blood 136 mg/dL (70-99); Sodium, Blood 140 mmol/L (136-145); Total Protein, Blood 5.2 g/dL (6.4-8.2)
--- NOTE | 2021-09-20 06:38 | NUR ---
SUMMARY PHONE CALL BY DR IGNACIO FOR UPDATE.DISCUSSED STATUS,VS,LABS,NOTIFIED URINE OUTPUT IMPROVED.ADVISED PT RECENTLY TOOK PO PAIN MED.AT THIS TIME,PT NOT WANTING HUTCHINS OUT UNTIL IMPROVED PAIN CONTROL.DR IGNACIO AWARE.
--- NOTE | 2021-09-20 07:39 | NUR ---
PT REPORTING ELIZABETH PO INEFFECTIVE.PT FALLS TO SLEEP WTIH SMALL WIND ENERGY INSTALLER, BUT REPORTS WAKES PAINFUL.PER DAY SHIFT REPORT AND HER DISCUSSION WITH DR HOANG, PT NOT ABLE TO HAVE CONTINUOUS SMALL WIND ENERGY INSTALLER DUE TO HYPOTENSION.ALSO NOTING AREA OF INCREASED FIRMNESS TO UPPER MID ABDOMEN ABOVE ATTEMPTED LAP SITE. I PLACED CALL TO ANSWERING SERVICE PENDING SPEAKING WITH DR. CANNON RN AWARE AND WILL FOLLOW UP IF I AM UNABLE TO REACH DOCTOR.
--- NOTE | 2021-09-20 10:13 | NUR ---
TO BEDSIDE. EVALUATED PATIENT AND NEW ORDERS RECEIVED.
--- NOTE | 2021-09-20 16:58 | NUR ---
SHIFT SUMMARY PT POD #1 FOR BILATERAL OVARIAN CYSTECTOMY/LAPAROTOMY/LYSIS OF ADHESIONS. PT HYPOTENSIVE BUT ASYMPTOMATIC FOR THE ENTIRETY OF THE SHIFT. PT HAVING ISSUES WITH PAIN CONTROL, PAIN HAS REMAINED AT A 7/10 FOR THE MAJORITY OF THE SHIFT. HUTCHINS REMOVED AND PATIENT IS ABLE TO AMBULATE AND VOID ON HER OWN.
--- NOTE | 2021-09-21 04:32 | NUR ---
SHIFT SUMMARY NO ACUTE CHANGES OVERNIGHT. PT REPORTS THAT SHE FEELS LESS PAINFUL OVERNIGHT. PAIN LEVEL 5-6/10. PAIN MANAGED WITH PERCOCET AND IBUPROFEN. TOLERATES PO INTAKE DENIES N/V. REPORTS SOME MIGRAINE (CHRONIC). PT ALSO REPORTS SOME MILD DIZZINESS INTERMITTENTLY. BP STILL ON LOW SCALE (UNCHANGED), 90'S FOR SYSTOLIC. AMBULATES IN THE BATHROOM USING POLE, SBA FOR SAFETY. LR INFUSING OVERNIGHT. CALL LIGHT WITHIN REACH. WILL PROVIDE REPORT TO ONCOMING NURSE.
[2021-09-21] MEDS ORDERED: Percocet 5-3251 EACH PO (15:05)
[2021-09-21] MEDS ORDERED: IBU800 MG PO (15:06)
[2021-09-21] MEDS ORDERED: ONDA4ODT MM (15:06)
--- NOTE | 2021-09-21 16:05 | NUR ---
DISCHARGE SUMMARY PT'S IV DCED. PT'S PRESCRIPTIONS FAXED TO PT'S PHARMACY. PT TEACHING PROVIDED. PT ACKNOWLEDGED UNDERSTANDING OF TEACHING AND ALL DISCHARGE PAPERWORK. PT SIGNED WHERE APPROPRIATE. PT ESCORTED BY STAFF VIA WHEELCHAIR TO PERSONAL VEHICLE. PT ENTERED VEHICLE WITHOUT INCIDENT AND LEFT POV.
== END 2021-09-21 16:12 | disposition home or self-care (01) | DRG 743 ==
LOC: ORSCMMR 06:11 → ORD 07:30 → ORSCMMR 07:30 → SURS 10:40 → ORSCMMR 10:40 → SURS 11:20 → ORSCMMR 11:20 → SURS 09-21 16:12
PROVIDERS: Obstetrics & Gynecology; ADMIT Obstetrics & Gynecology
PROC: 0UB20ZZ Excision of Bilateral Ovaries, Open Approach (ICD-10-PCS; principal; 2021-09-19 07:30)
PROC: 0DNW0ZZ Release Peritoneum, Open Approach (ICD-10-PCS; 2021-09-19 07:30)
DX: N83.202 Unspecified ovarian cyst, left side (principal); N83.201 Unspecified ovarian cyst, right side; N73.6 Female pelvic peritoneal adhesions (postinfective); Z79.899 Other long term (current) drug therapy; K21.9 Gastro-esophageal reflux disease without esophagitis; J45.909 Unspecified asthma, uncomplicated; Z90.49 Acquired absence of other specified parts of digestive tract; Z90.710 Acquired absence of both cervix and uterus; Z98.890 Other specified postprocedural states; Z87.891 Personal history of nicotine dependence; G43.909 Migraine, unspecified, not intractable, without status migrainosus; M32.9 Systemic lupus erythematosus, unspecified; Z87.442 Personal history of urinary calculi
CPT/HCPCS: 36415; 80053; 85025; 87070; 87075; 87205; 88305; A9270; J1100; J1885; J2250; J2370; J2405; J2704; J3010; J7040; J7120

== ENCOUNTER → 2022-01-17 | Outpatient (CLI) | payer OTHER ==
[~2022-01-17] MED LIST changes: +FLUT1DIS8 INH; +IBU800 MG PO; +ONDA4ODT MM; +Percocet 5-3251 EACH PO
== END | disposition home or self-care (01) ==
LOC: LAB SHORT 10:48 → LAB 10:48
DX: R30.0 Dysuria (principal)
CPT/HCPCS: 87077; 87086; 87186

== ENCOUNTER → 2022-09-30 | Outpatient (CLI) | payer OTHER | END | disposition home or self-care (01) | LOC: LAB SHORT 08:09 → LAB 08:09 | DX: N39.0 Urinary tract infection, site not specified (principal) | CPT/HCPCS: 87077; 87086; 87186 ==

== ENCOUNTER 2022-12-10 06:02 | Inpatient (IN) | payer OTHER ==
[2022-12-10] VITALS (23 sets, daily range): BP systolic 85–134; BP diastolic 38–89
[~2022-12-10] VITALS: Ht 157.5 cm; Wt 94.3 kg
[2022-12-10] MEDS ORDERED: FAMO20 (06:53)
--- NOTE | 2022-12-10 07:12 | NUR ---
Ambulatory in Day Surgery History, Chart, Medications and Allergies reviewed before start of procedure.Pre-Op teaching done. Pt verbalizes understanding. Patient States Post-Procedure ride home has been arranged.
--- NOTE | 2022-12-10 12:06 | NUR ---
PT ARRIVED TO UNIT FROM PACU VERY PAINFUL, RATING PAIN 8/10 TO ABD, CRYING OUT WITH MOVEMENT. INSTRUCTED PT ON RELAXATION BREATHING. STARTED SKEIN MERCERIZING MACHINE OPERATOR PER ORDERS, PT REPORTS PAIN IMPROVING SLIGHTLY, NOW RATING 7/10. MEDIPORE DRESSING TO LOWER TRANSVERSE ABD SATURATED, ABD PAD IN PLACE UPON ARRIVAL TO REINFORCE/CDI. ICE PACK IN ABDOMINAL BINDER. HUTCHINS CATH DRAINING DARK YELLOW URINE. ORIENTED PT TO CALL LIGHT AND USE OF SKEIN MERCERIZING MACHINE OPERATOR.
--- NOTE | 2022-12-10 13:52 | NUR ---
DR HOANG IN TO SEE PT.
--- NOTE | 2022-12-10 17:04 | NUR ---
SUMMARY PT REPORTS INTERMITTENT NAUSEA. PROVIDED SHAHID CRACKERS PER PT REQUEST. PT MEDICATED PER ORDERS W/ZOFRAN THIS AFTERNOON. PT REPORTS PAIN TOLERABLE, RATING 3/10 TO ABDOMEN. MOD AMOUNT SS DRAINAGE NOTED TO ABD PAD. PT HYPOTENSIVE, DISCUSSED WITH DR HOANG WHEN CAME TO FLOOR TO DISCUSS SURGERY W/PT AND SPOUSE. IV FLUIDS INFUSING PER ORDERS. CALL LIGHT AND TABLEAU REPORT DEVELOPER IN REACH.
--- NOTE | 2022-12-10 17:55 | NUR ---
NAUSEA/HYPOTENSION PT CONTINUES TO HAVE NAUSEA. SBP HAS REMAINED IN 90S T/O AFTERNOON. HR IN 50S. DISCUSSED WITH DR HOANG. NEW ORDERS FOR ZOFRAN Q4P OBTAINED. ADVISED TO ALLOW PT TO STAY ON BEDREST T/O NIGHT.
[2022-12-11 03:56] VITALS: BP 94/53
--- NOTE | 2022-12-11 04:01 | NUR ---
SHIFT SUMMARY PT HAS RESTED MOST OF THE NIGHT, PT HAS NOT HAD ANY COMPLAINTS OF NAUSEA THIS SHIFT AND HAS BEEN ABLE TOLERATE PO INTAKE. FENTANYL CERTIFIED MEDICAL DOSIMETRIST IN PLACE. NO CHANGE IN SURGICAL SITE OVERNIGHT, DRESSING INTACT. NO INCREASED DRAINAGE NOTED THIS SHIFT. BP REMAINS SOFT, MAP WNL. PT IS ASYMPTOMATIC. HUTCHINS IN PLACE DRAINING. BEDREST T/O SHIFT. BED IN LOWEST POSITION, CALL LIGHT WITHIN REACH.
[2022-12-11 05:17] LABS: BASOPHILS ABSOLUTE AUTO 0.02 K/mm3 (0.00-0.23); BASOPHILS PERCENT AUTO 0 % (0-2); EOSINOPHILS PERCENT AUTO 0 % (0-6); Hematocrit 32.9 % (33.0-51.0); Hemoglobin 11.1 g/dL (11.5-16.0); IMMATURE GRAN ABSOLUTE AUTO 0.07 K/mm3 (0.00-0.10); IMMATURE GRAN PERCENT AUTO 1 % (0-1); LYMPHOCYTES ABSOLUTE AUTO 0.99 K/mm3 (0.84-5.20); LYMPHOCYTES PERCENT AUTO 7 % (21-46); MONOCYTES ABSOLUTE AUTO 0.87 K/mm3 (0.16-1.47); MONOCYTES PERCENT AUTO 6 % (4-13); Mean Corpuscular HGB 28.3 pg (26.0-34.0); Mean Corpuscular HGB Conc 33.7 g/dL (31.5-36.5); Mean Corpuscular Volume 84 fL (80-100); Mean Platelet Volume 10.6 fL (9.1-12.4); NEUTROPHILS PERCENT AUTO 86 % (41-73); Platelet Count 204 K/mm3 (150-400); RDW Coefficient Variation 13.7 % (11.7-14.2); RDW Standard Deviation 41.8 fL (35.1-46.3); Red Blood Cell Count 3.92 M/mm3 (3.80-5.20); White Blood Cell Count 13.65 K/mm3 (4.00-11.30)
[2022-12-11 07:43] VITALS: BP 95/65
--- NOTE | 2022-12-11 09:29 | NUR ---
FIRE SAFETY REVIEWED FIRE SAFETY W/PT. VERBALIZED UNDERSTANDING AND DENIED POSSESSION OF ANY LIGHTERS/CIGARETES/MATCHES, ETC.
--- NOTE | 2022-12-11 12:04 | NUR ---
TRANSITIONING TO PO PAIN MEDS. PRE PLANNING ADVISOR SYRINGE COMPLETED. DISCONNECTED TUBING FROM PT AND TRANSITIONED TO PO PAIN MEDS PER THE EMAR. PT VISITING WITH GUEST. CALL LIGHT IN REACH.
--- NOTE | 2022-12-11 15:15 | NUR ---
IV INFILTRATED DC'D IV, CATHETER INTACT. IV SITE WARM, RED, FIRM. PLACED WARM COMPRESS TO SITE AND NOTIFIED DR HOANG.
[2022-12-11 15:29] VITALS: BP 136/59
[2022-12-11] MEDS ORDERED: Percocet 5-3251 EACH PO (17:33)
[2022-12-11] MEDS ORDERED: IBU800 MG PO (17:34)
[2022-12-11] MEDS ORDERED: LEVFLO500 PO (17:35)
[2022-12-11] MEDS ORDERED: ONDA4 PO (17:35)
[2022-12-11] MEDS ORDERED: METR500 PO (17:36)
[2022-12-11 17:44] VITALS: BP 112/59
--- NOTE | 2022-12-11 17:51 | NUR ---
DR HOANG IN TO SEE PT. DISCHARGE ORDERS OBTAINED. PT VOIDING, HAD BM, GETTING UP INDEPENDENTLY TO RESTROOM AND TOLERATING DIET. GAVE PRESCRIPTIONS TO SPOUSE TO TAKE TO PHARMACY. PT RESTING IN BED UNTIL SPOUSE'S RETURN. CALL LIGHT IN REACH.
[2022-12-11 19:00] VITALS: BP 101/62
--- NOTE | 2022-12-11 19:10 | NUR ---
DISCHARGED PT DC'D. REVIEWED DC INSTRUCTIONS W/PT; VERBALIZED UNDERSTANDING. SPOUSE PICKED UP PRESCRIPTIONS. PT LEFT UNIT IN WC, ACCOMPANIED BY SPOUSE W/POSSESSIONS AND DC PAPERWORK IN HAND TO RIDE OUTSIDE.
== END 2022-12-11 19:12 | disposition home or self-care (01) | DRG 982 ==
LOC: ORSCMMR 06:02 → SURS 11:33 → ORSCMMR 11:34 → SURS 11:35
PROVIDERS: ADMIT Obstetrics & Gynecology
PROC: 0JNC0ZZ Release Pelvic Region Subcutaneous Tissue and Fascia, Open Approach (ICD-10-PCS; principal; 2022-12-10 07:30)
DX: N73.6 Female pelvic peritoneal adhesions (postinfective) (principal); J45.901 Unspecified asthma with (acute) exacerbation; N83.8 Other noninflammatory disorders of ovary, fallopian tube and broad ligament; K21.9 Gastro-esophageal reflux disease without esophagitis; G43.019 Migraine without aura, intractable, without status migrainosus; E01.0 Iodine-deficiency related diffuse (endemic) goiter; Z90.710 Acquired absence of both cervix and uterus; Z98.818 Other dental procedure status; Z98.891 History of uterine scar from previous surgery; Z79.899 Other long term (current) drug therapy; Z90.49 Acquired absence of other specified parts of digestive tract; Z98.890 Other specified postprocedural states; Z87.891 Personal history of nicotine dependence; Z88.1 Allergy status to other antibiotic agents; Z88.8 Allergy status to other drugs, medicaments and biological substances
CPT/HCPCS: 36415; 85025; 86850; 86900; 86901; A9270; J1100; J1170; J1885; J1956; J2250; J2405; J2704; J2710; J3010; J7120